=== PATIENT | male | born 1995 | race Caucasian/White ===

== ENCOUNTER 2016-11-07 13:24 | Emergency (ER) | payer OTHER ==
[~2016-11-07] VITALS: Ht 188 cm; Wt 111.1 kg
--- NOTE | 2016-11-07 14:13 | ED Psychosocial ---
General Chief Complaint: Psych/Social Disorder Stated Complaint: PSYCH EVAL Nursing Triage Note: PT STATES HE HAS BEEN HAVING FEELINGS OF HURTING HIMSELF, EX GIRLFRIEND BROUGHT HIM TO ER. Source: patient Exam Limitations: no limitations History of Present Illness Time seen by provider: 14:13 Initial Comments Brought to ER by his ex-girlfriend with reports of feeling like hurting himself. He's had ongoing thoughts of depression and has occasionally thought of killing himself before but has never thought so seriously about today. He voiced this to his ex-girlfriend who brought him to the emergency room. He did breakup with his girlfriend 3 weeks ago. He does have a plan, states that he broke his hand about one to 2 weeks ago and has some leftover pain pills and he was going to take them all at once. He has never sought mental health help and is not on any medications. He is agreeable to inpatient placement if we could arrange that. 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 Severity: moderate Associated Symptoms: suicidal ideation Constitutional: see HPI EENTM: see HPI Respiratory: no symptoms reported Cardiovascular: no symptoms reported Genitourinary: no symptoms reported Musculoskeletal: no symptoms reported Skin: no symptoms reported Psychiatric/Neurological: See HPI, Anxiety, Depressed Past Udohemj-Bjatxw-Dmhhma Hx Patient Social History Alcohol Use: Regular Use Recreational Drug Use: No Smoking Status: Current Everyday Smoker Type Used: Electronic/Vapor Recent Foreign Travel: No Contact w/Someone Who Travel: No Recent Infectious Disease Expo: No Seasonal Allergies Seasonal Allergies: No Psychosocial Hx Psychiatric Problems: Yes Behavioral Health Disorders: Depression Physical Exam Vital Signs Vital Sign - Last 12Hours 11/07/16 13:42 Temp 98.3 Pulse 81 Resp 18 B/P (MAP) 140/72 Pulse Ox 98 O2 Delivery Room Air Capillary Refill : Less Than 3 Seconds General Appearance: WD/WN, no apparent distress HEENT: PERRL/EOMI, normal ENT inspection Neck: non-tender, full range of motion Respiratory: normal breath sounds, no respiratory distress, no accessory muscle use Gastrointestinal: normal bowel sounds, non tender, soft Neurologic/Psychiatric: alert, normal mood/affect, oriented x 3 Appearance/Memory: appropriate appearance, appropriate insight, neat Behavior/Eye Contact: cooperative, good eye contact, normal speech Skin: normal color Comments Pleasant, cooperative Progress/Results/Core Measures Results/Orders Lab Results Laboratory Tests Test 11/07/16 14:31 Range/Units White Blood Count 8.3 4.3-11.0 10^3/uL Red Blood Count 5.55 4.35-5.85 10^6/uL Hemoglobin 15.5 13.3-17.7 G/DL Hematocrit 46 40-54 % Mean Corpuscular Volume 82 80-99 FL Mean Corpuscular Hemoglobin 28 25-34 PG Mean Corpuscular Hemoglobin Concent 34 32-36 G/DL Red Cell Distribution Width 13.4 10.0-14.5 % Platelet Count 288 130-400 10^3/uL Mean Platelet Volume 10.5 H 7.4-10.4 FL Neutrophils (%) (Auto) 74 42-75 % Lymphocytes (%) (Auto) 17 12-44 % Monocytes (%) (Auto) 8 0-12 % Eosinophils (%) (Auto) 1 0-10 % Basophils (%) (Auto) 0 0-10 % Neutrophils # (Auto) 6.1 1.8-7.8 X 10^3 Lymphocytes # (Auto) 1.4 1.0-4.0 X 10^3 Monocytes # (Auto) 0.7 0.0-1.0 X 10^3 Eosinophils # (Auto) 0.1 0.0-0.3 10^3/uL Basophils # (Auto) 0.0 0.0-0.1 10^3/uL Urine Color YELLOW Urine Clarity CLEAR Urine pH 6.5 5-9 Urine Specific [place] 1.010 L 1.016-1.022 Urine Protein NEGATIVE NEGATIVE Urine Glucose (UA) NEGATIVE NEGATIVE Urine Ketones NEGATIVE NEGATIVE Urine Nitrite NEGATIVE NEGATIVE Urine Bilirubin NEGATIVE NEGATIVE Urine Urobilinogen NORMAL NORMAL MG/DL Urine Leukocyte Esterase NEGATIVE NEGATIVE Urine RBC (Auto) NEGATIVE NEGATIVE Urine RBC NONE /HPF Urine WBC NONE /HPF Urine Squamous Epithelial Cells RARE /HPF Urine Crystals NONE /LPF Urine Bacteria NEGATIVE /HPF Urine Casts NONE /LPF Urine Mucus NEGATIVE /LPF Urine Culture Indicated NO Sodium Level 140 135-145 MMOL/L Potassium Level 4.1 3.6-5.0 MMOL/L Chloride Level 105 98-107 MMOL/L Carbon Dioxide Level 27 21-32 MMOL/L Anion Gap 8 5-14 MMOL/L Blood Urea Nitrogen 10 7-18 MG/DL Creatinine 0.90 0.60-1.30 MG/DL Estimat Glomerular Filtration Rate > 60 BUN/Creatinine Ratio 11 Glucose Level 89 70-105 MG/DL Calcium Level 10.2 H 8.5-10.1 MG/DL Total Bilirubin 0.6 0.1-1.0 MG/DL Aspartate Amino Transf (AST/SGOT) 19 5-34 U/L Alanine Aminotransferase (ALT/SGPT) 34 0-55 U/L Alkaline Phosphatase 83 40-136 U/L Total Protein 7.4 6.4-8.2 G/DL Albumin 4.6 H 3.2-4.5 G/DL Salicylates Level < 5.0 L 5.0-20.0 MG/DL Urine Opiates Screen NEGATIVE NEGATIVE Urine Oxycodone Screen NEGATIVE NEGATIVE Urine Methadone Screen NEGATIVE NEGATIVE Urine Propoxyphene Screen NEGATIVE NEGATIVE Acetaminophen Level < 10 L 10-30 UG/ML Urine Barbiturates Screen NEGATIVE NEGATIVE Ur Tricyclic Antidepressants Screen NEGATIVE NEGATIVE Urine Phencyclidine Screen NEGATIVE NEGATIVE Urine Amphetamines Screen NEGATIVE NEGATIVE Urine Methamphetamines Screen NEGATIVE NEGATIVE Urine Benzodiazepines Screen NEGATIVE NEGATIVE Urine Cocaine Screen NEGATIVE NEGATIVE Urine Cannabinoids Screen NEGATIVE NEGATIVE Serum Alcohol < 10 <10 MG/DL My Orders Orders - DANNI SARMIENTO APRN Cbc With Automated Diff (11/07/16 14:12) Alcohol (11/07/16 14:12) Salicylate (11/07/16 14:12) Acetaminophen (11/07/16 14:12) Ekg Tracing (11/07/16 14:12) Comprehensive Metabolic Panel (11/07/16 14:12) Ua Culture If Indicated (11/07/16 14:12) Drug Screen Stat (Urine) (11/07/16 14:12) General/Regular (11/07/16 Dinner) Vital Signs/I&O Vital Sign - Last 12Hours 11/07/16 13:42 Temp 98.3 Pulse 81 Resp 18 B/P (MAP) 140/72 Pulse Ox 98 O2 Delivery Room Air Blood Pressure Mean: 94 Departure Communication Progress Notes [id number]-- Dr Marsh accepts pt for inpatient psychiatric placement at [facility]. Impression Impression: Primary Impression: Depression Additional Impression: Suicidal ideation Disposition: 65 XFER TO PSYCH HOSP/UNIT Condition: Stable Departure-Patient Inst. Decision time for Depature: 15:23 Referrals: [employer] [facility] (PCP/Family) Primary Care Physician DANNI SARMIENTO APRN November 07, 2016 14:13
[2016-11-07 14:41] LABS: BASOPHILS % (AUTO) 0 % (0-10); BILIRUBIN,URINE NEGATIVE (NEGATIVE); EOSINOPHILS # (AUTO) 0.1 10^3/uL (0.0-0.3); EOSINOPHILS % (AUTO) 1 % (0-10); KETONES,URINE NEGATIVE (NEGATIVE); LEUKOCYTE ESTERASE ,URINE NEGATIVE (NEGATIVE); LYMPHOCYTES # (AUTO) 1.4 X 10^3 (1.0-4.0); LYMPHOCYTES % (AUTO) 17 % (12-44); MEAN CORPUSCULAR HEMOGLOBIN 28 PG (25-34); MEAN CORPUSCULAR HGB CONC 34 G/DL (32-36); MEAN CORPUSCULAR VOLUME 82 FL (80-99); MEAN PLATELET VOLUME 10.5 FL (7.4-10.4); MONOCYTES # (AUTO) 0.7 X 10^3 (0.0-1.0); MONOCYTES % (AUTO) 8 % (0-12); NEUTROPHILS # (AUTO) 6.1 X 10^3 (1.8-7.8); NEUTROPHILS % (AUTO) 74 % (42-75); NITRITE,URINE NEGATIVE (NEGATIVE); PH,URINE 6.5 (5-9); PLATELET COUNT 288 10^3/uL (130-400); PROTEIN,URINE NEGATIVE (NEGATIVE); RED BLOOD COUNT 5.55 10^6/uL (4.35-5.85); RED CELL DISTRIBUTION WIDTH 13.4 % (10.0-14.5); UROBILINOGEN,URINE NORMAL (NORMAL); WHITE BLOOD COUNT 8.3 10^3/uL (4.3-11.0)
[2016-11-07 14:59] LABS: ALANINE AMINOTRANSFERASE 34 U/L (0-55); ALBUMIN 4.6 G/DL (3.2-4.5); ANION GAP 8 MMOL/L (5-14); ASPARTATE AMINO TRANSFERASE 19 U/L (5-34); BILIRUBIN,TOTAL 0.6 MG/DL (0.1-1.0); BLOOD UREA NITROGEN 10 MG/DL (7-18); BUN/CREATININE RATIO 11; CALCIUM 10.2 MG/DL (8.5-10.1); CARBON DIOXIDE 27 MMOL/L (21-32); CHLORIDE 105 MMOL/L (98-107); GFR ESTIMATED > 60; GLUCOSE 89 MG/DL (70-105); POTASSIUM 4.1 MMOL/L (3.6-5.0); SALICYLATE < 5.0 MG/DL (5.0-20.0); SODIUM 140 MMOL/L (135-145); TOTAL PROTEIN 7.4 G/DL (6.4-8.2)
[2016-11-07 15:00] LABS: ACETAMINOPHEN < 10 UG/ML (10-30); ALCOHOL < 10 MG/DL (<10); SQUAMOUS EPITHELIAL CELL,UR RARE /HPF
[2016-11-07 16:55] VITALS: BP 132/68
== END 2016-11-07 16:54 ==
LOC: ER 13:28
DX: R45.851 Suicidal ideations (principal); F17.210 Nicotine dependence, cigarettes, uncomplicated
CPT/HCPCS: 36415; 80053; 80306; 80320; 80329; 81000; 85025

== ENCOUNTER → 2019-04-21 | Outpatient (CLI) | payer OTHER ==
--- NOTE | 2019-04-21 18:15 | Diagnostic Imaging Report ---
EXAMINATION: Left wrist at 5:55 PM. INDICATION: Fell, wrist pain. Three views were obtained. COMPARISON: There are no prior studies available for comparison. FINDINGS: There is an oblique essentially nondisplaced fracture extending obliquely through the medial cortex of the base of the ulnar styloid. There is also slight irregularity of the trabecula of the distal radius and there could be a nondisplaced fracture in this region as well. No other fracture or acute bony abnormality is noted. The radiocarpal joint is well maintained. The soft tissues are unremarkable. IMPRESSION: 1. There is an oblique essentially nondisplaced fracture extending through the medial cortex of the base of the ulnar styloid. There may also be a nondisplaced fracture of the distal radius. If further evaluation is desired, then CT would be recommended. 2. There is no acute bony abnormality noted otherwise. Dictated by: Dictated on workstation # [id number]
== END ==
LOC: RAD 17:37
PROVIDERS: ATTEND Family Medicine
DX: S52.615A Nondisplaced fracture of left ulna styloid process, initial encounter for closed fracture (principal); S60.212A Contusion of left wrist, initial encounter; W19.XXXA Unspecified fall, initial encounter
CPT/HCPCS: 73110